=== PATIENT | male | born 1980 | race Caucasian/White ===

== ENCOUNTER 2021-05-08 23:09 | Emergency (ER) | payer OTHER ==
[~2021-05-08] VITALS: Ht 180.3 cm; Wt 127.9 kg
[~2021-05-08 23:09] MED LIST: BP MED PO; CIPROFLOXACIN500 MG PO; CLINDAMYCIN HC300 MG PO; FLOMAX0.4 MG PO; FLONASE ALLERG9.9 ML NAS; HYDROCODONE BIT1 T11 PO; LODINE200 MG PO; LOPID600 M1 PO; MOTRIN800 MG PO; PERCOCET 325 MG1 TA3 PO
[2021-05-09] MEDS ORDERED: SEPTDS PO (01:04)
[2021-05-09] MEDS ORDERED: CEPHALEXIN500 M1 PO (01:04)
== END 2021-05-09 01:10 | disposition home or self-care (01) ==
LOC: ED 23:09
DX: L02.415 Cutaneous abscess of right lower limb (principal); Z79.2 Long term (current) use of antibiotics; Z79.899 Other long term (current) drug therapy

== ENCOUNTER → 2022-05-05 | Outpatient (CLI) | payer OTHER ==
[~2022-05-05] MED LIST changes: +CEPHALEXIN500 M1 PO; +SEPTDS PO
== END | disposition home or self-care (01) ==
LOC: RAD 11:37
PROVIDERS: ATTEND Internal Medicine
DX: Z01.818 Encounter for other preprocedural examination (principal); Z48.814 Encounter for surgical aftercare following surgery on the teeth or oral cavity